=== PATIENT | male | born 1950 | race Caucasian/White ===

== ENCOUNTER 2017-03-27 16:07 | Inpatient (IN) | payer OTHER ==
[2017-03-27 16:42] LABS: BASOPHILS # (AUTO) 0.1 X10^3/uL (0.0-0.1); BASOPHILS % (AUTO) 0.9 % (0.2-1.0); EOSINOPHILS # (AUTO) 0.3 x10^3/uL (0.0-0.2); HEMATOCRIT 35.3 % (42.0-54.0); HEMOGLOBIN 11.7 g/dL (13.5-18.0); LYMPHOCYTES # (AUTO) 3.5 X10^3/uL (1.3-2.9); LYMPHOCYTES % (AUTO) 24.1 % (21.0-51.0); MEAN CORPUSCULAR HEMOGLOBIN 28.2 pg (27.0-34.0); MEAN CORPUSCULAR HGB CONC 33.2 g/dL (33.0-35.0); MEAN CORPUSCULAR VOLUME 85.1 fL (80.0-100.0); MEAN PLATELET VOLUME 9.5 fL (7.4-11.0); MONOCYTES # (AUTO) 1.3 x10^3/uL (0.3-0.8); MONOCYTES % (AUTO) 8.7 % (0.0-13.0); NEUTROPHILS # (AUTO) 9.3 x10^3/uL (2.2-4.8); NEUTROPHILS % (AUTO) 64.3 % (42.0-75.0); PLATELET COUNT 334 X10^3/uL (150.0-450.0); RED BLOOD COUNT 4.15 X10^6/uL (4.7-6.0); RED CELL DISTRIBUTION WIDTH 17.9 % (11.6-16.5); WHITE BLOOD COUNT 14.4 X10^3/uL (3.6-10.0)
[2017-03-27 17:00] LABS: ALANINE AMINOTRANSFERASE 25 Units/L (12-78); ALBUMIN 3.3 g/dL (3.4-5.0); ALKALINE PHOSPHATASE 86 Units/L (46-116); ASPARTATE AMINO TRANSFERASE 64 Units/L (15-37); BLOOD UREA NITROGEN 34 mg/dL (7-18); CALCIUM 9.6 mg/dL (8.5-10.1); CHLORIDE 101 mmol/L (98-107); CKMB % 1.6 % (<4); COR CA(FOR HYPOALB) 10.2 mg/dL (8.5-10.1); CREATINE KINASE 61 Units/L (39-308); CREATINE KINASE MB < 1.0 ng/mL (0-4.0); CREATININE 2.29 mg/dL (0.70-1.30); FREE T4 (FREE THYROXINE) 1.53 ng/dL (0.76-1.46); SODIUM 140 mmol/L (136-145); TOTAL PROTEIN 7.6 g/dL (6.4-8.2); TROPONIN I 0.03 ng/mL (0-1.5); TSH (3RD GENERATION) 1.424 uIU/mL (0.358-3.74); eGFR BLACK RACES 37 (>60); eGFR NON BLACK RACES 31 (>60)
[2017-03-27] MEDS: NS 1000 ML 1,000 ML IV SCH (17:15)
[2017-03-27] MEDS: ROCEPHIN VIAL 1 GM 1 GM in NS 50 ML IV + SPIKE MINIBAG* 50 ML IV SCH (17:48)
[2017-03-27 20:24] LABS: BILIRUBIN,URINE NEGATIVE (NEGATIVE); BLOOD/HEMOGLOBIN,URINE 5+ (NEGATIVE); GLUCOSE, URINE NEGATIVE (NEGATIVE); KETONES,URINE NEGATIVE (NEGATIVE); LEUKOCYTE ESTERASE ,URINE 2+ (NEGATIVE); NITRITES,URINE POSITIVE (NEGATIVE); PROTEIN,URINE 3+ (NEGATIVE); UROBILINOGEN,URINE NORMAL (NORMAL)
[2017-03-27 20:49] LABS: COLOR,URINE YELLOW (YELLOW)
[2017-03-27 20:50] LABS: APPEARANCE,URINE CLOUDY (CLEAR)
[2017-03-27 20:53] LABS: RBC,URINE 75 - 100 /HPF (NEGATIVE)
[2017-03-27 20:54] LABS: AMORPHOUS SEDIMENT,UR 3+ /HPF (NEGATIVE); BACTERIA,URINE 1+ /HPF (NEGATIVE); CALCIUM OXALATE CRYSTALS,UR FEW /HPF (NEGATIVE); HYALINE CASTS, URINE RARE /LPF (NEGATIVE); SQUAMOUS EPITHELIAL CELL,UR RARE /HPF (NEGATIVE)
[2017-03-27] MEDS ORDERED: ULTRAM PO PRN (21:55)
[2017-03-27] MEDS ORDERED: SOTALOL HCL PO SCH (22:00)
[2017-03-27] MEDS ORDERED: FLOMAX ONE (22:55)
[2017-03-27] MEDS: BETAPACE AF PO SCH (23:02)
[2017-03-27] MEDS: SINEMET (PLAIN) 25/100 MG PO SCH (23:03)
[2017-03-27] MEDS: FLOMAX PO SCH (23:05)
[2017-03-27 23:10] LABS: CKMB % 1.8 % (<4); CREATINE KINASE 57 Units/L (39-308); CREATINE KINASE MB < 1.0 ng/mL (0-4.0); TROPONIN I 0.02 ng/mL (0-1.5)
[2017-03-28 05:26] LABS: BASOPHILS # (AUTO) 0.1 X10^3/uL (0.0-0.1); BASOPHILS % (AUTO) 0.7 % (0.2-1.0); EOSINOPHILS # (AUTO) 0.2 x10^3/uL (0.0-0.2); EOSINOPHILS % (AUTO) 0.9 % (0.9-2.9); HEMATOCRIT 32.1 % (42.0-54.0); HEMOGLOBIN 10.5 g/dL (13.5-18.0); LYMPHOCYTES # (AUTO) 4.6 X10^3/uL (1.3-2.9); LYMPHOCYTES % (AUTO) 23.2 % (21.0-51.0); MEAN CORPUSCULAR HEMOGLOBIN 28.1 pg (27.0-34.0); MEAN CORPUSCULAR HGB CONC 32.6 g/dL (33.0-35.0); MEAN CORPUSCULAR VOLUME 86.2 fL (80.0-100.0); MEAN PLATELET VOLUME 9.9 fL (7.4-11.0); MONOCYTES # (AUTO) 1.9 x10^3/uL (0.3-0.8); MONOCYTES % (AUTO) 9.5 % (0.0-13.0); NEUTROPHILS # (AUTO) 13.1 x10^3/uL (2.2-4.8); NEUTROPHILS % (AUTO) 65.7 % (42.0-75.0); PLATELET COUNT 313 X10^3/uL (150.0-450.0); RED BLOOD COUNT 3.73 X10^6/uL (4.7-6.0); RED CELL DISTRIBUTION WIDTH 18.4 % (11.6-16.5); WHITE BLOOD COUNT 19.9 X10^3/uL (3.6-10.0)
[2017-03-28] MEDS: SINEMET (PLAIN) 25/100 MG PO SCH ×3 (05:34→21:03)
[2017-03-28] MEDS ORDERED: GLUCOPHAGE ONE (07:47)
[2017-03-28 07:54] LABS: CALCIUM 9.2 mg/dL (8.5-10.1); CARBON DIOXIDE 32.6 mmol/L (21-32); CREATININE 2.24 mg/dL (0.70-1.30)
[2017-03-28] MEDS: GLUCOPHAGE PO SCH (08:57)
[2017-03-28] MEDS: BETAPACE AF PO SCH ×2 (08:57→20:37)
[2017-03-28] MEDS: PROTONIX TAB 40 MG PO SCH (09:05)
[2017-03-28] MEDS: COREG TAB 12.5 MG PO SCH ×2 (09:06→20:36)
[2017-03-28] MEDS: LASIX PO SCH (09:06)
[2017-03-28] MEDS: ROCEPHIN VIAL 1 GM 1 GM in NS 50 ML IV + SPIKE MINIBAG* 50 ML IV SCH (09:06)
[2017-03-28] MEDS: XANAX PO SCH ×2 (09:06→20:37)
[2017-03-28] MEDS: ZYLOPRIM PO SCH (09:06)
[2017-03-28] MEDS: PLAVIX PO SCH (09:07)
[2017-03-28] MEDS: LANOXIN PO SCH (09:11)
[2017-03-28] MEDS: NS 1000 ML 1,000 ML IV SCH ×2 (09:13→20:40)
[2017-03-28 10:30] VITALS: BMI 25.2
[2017-03-28] MEDS ORDERED: HumuLIN R SUBCUT PRN (10:47)
[2017-03-28] MEDS ORDERED: MILK OF MAGNESIA PO PRN (12:52)
[2017-03-28 14:17] LABS: TROPONIN I 0.03 ng/mL (0-1.5)
[2017-03-28 15:24] LABS: TOTAL PROTEIN 6.9 g/dL (6.4-8.2)
[2017-03-28] MEDS ORDERED: COLACE CAP 100 MG PO PRN (19:38)
[2017-03-28] MEDS: FLOMAX PO SCH (20:35)
[2017-03-28] MEDS: TYLENOL #3 TAB (W/CODEINE) PO PRN (20:36)
[2017-03-28] MEDS: SNACK - Diabetic Appropriate PO SCH (20:39)
[2017-03-29 05:09] LABS: BASOPHILS # (AUTO) 0.1 X10^3/uL (0.0-0.1); BASOPHILS % (AUTO) 0.5 % (0.2-1.0); EOSINOPHILS # (AUTO) 0.4 x10^3/uL (0.0-0.2); EOSINOPHILS % (AUTO) 2.5 % (0.9-2.9); HEMATOCRIT 29.8 % (42.0-54.0); HEMOGLOBIN 9.7 g/dL (13.5-18.0); LYMPHOCYTES # (AUTO) 4.5 X10^3/uL (1.3-2.9); LYMPHOCYTES % (AUTO) 27.1 % (21.0-51.0); MEAN CORPUSCULAR HEMOGLOBIN 28.2 pg (27.0-34.0); MEAN CORPUSCULAR HGB CONC 32.4 g/dL (33.0-35.0); MEAN CORPUSCULAR VOLUME 86.9 fL (80.0-100.0); MEAN PLATELET VOLUME 10.2 fL (7.4-11.0); MONOCYTES # (AUTO) 1.6 x10^3/uL (0.3-0.8); MONOCYTES % (AUTO) 9.7 % (0.0-13.0); NEUTROPHILS % (AUTO) 60.2 % (42.0-75.0); PLATELET COUNT 267 X10^3/uL (150.0-450.0); RED BLOOD COUNT 3.43 X10^6/uL (4.7-6.0); RED CELL DISTRIBUTION WIDTH 18.2 % (11.6-16.5); WHITE BLOOD COUNT 16.7 X10^3/uL (3.6-10.0)
[2017-03-29 05:26] LABS: ALANINE AMINOTRANSFERASE 33 Units/L (12-78); ALBUMIN 2.6 g/dL (3.4-5.0); ALKALINE PHOSPHATASE 83 Units/L (46-116); ASPARTATE AMINO TRANSFERASE 56 Units/L (15-37); BLOOD UREA NITROGEN 26 mg/dL (7-18); CALCIUM 8.7 mg/dL (8.5-10.1); CARBON DIOXIDE 32.2 mmol/L (21-32); CHLORIDE 107 mmol/L (98-107); COR CA(FOR HYPOALB) 9.8 mg/dL (8.5-10.1); CREATININE 2.04 mg/dL (0.70-1.30); SODIUM 145 mmol/L (136-145); TOTAL PROTEIN 6.3 g/dL (6.4-8.2); eGFR BLACK RACES 42 (>60); eGFR NON BLACK RACES 35 (>60)
[2017-03-29] MEDS: NS 1000 ML 1,000 ML IV SCH (05:30)
[2017-03-29] MEDS: SINEMET (PLAIN) 25/100 MG PO SCH ×3 (05:30→21:39)
[2017-03-29] MEDS ORDERED: GLUCOPHAGE ONE (08:28)
[2017-03-29] MEDS: COREG TAB 12.5 MG PO SCH ×2 (08:41→21:38)
[2017-03-29] MEDS: BETAPACE AF PO SCH ×2 (08:41→21:41)
[2017-03-29] MEDS: GLUCOPHAGE PO SCH (08:41)
[2017-03-29] MEDS: ZYLOPRIM PO SCH (08:41)
[2017-03-29] MEDS: PROTONIX TAB 40 MG PO SCH (08:41)
[2017-03-29] MEDS: XANAX PO SCH ×2 (08:41→21:39)
[2017-03-29] MEDS: LANOXIN PO SCH (08:43)
[2017-03-29] MEDS: LASIX PO SCH (08:43)
[2017-03-29] MEDS: PLAVIX PO SCH (08:45)
[2017-03-29] MEDS: ROCEPHIN VIAL 1 GM 1 GM in NS 50 ML IV + SPIKE MINIBAG* 50 ML IV SCH (08:46)
--- NOTE | 2017-03-29 14:30 | PCM.PROG ---
Progress Note - Progress Note for Day of Date: 03/29/17 - Subjective Subjective: patient is a 66-year-old white male who was admitted from [facility] on 03/27/2017 with altered mental status and hematuria. Patient was noted to have a UTI on admission. Patient is currently receiving IV hydration. Patient's renal function slightly improved. Patient noted to be hypokelemic, limiting this morning potassium 3.1. - Past Medical Family Social History Past Med/Fam/Surg Hx: No changes since H&P Allergies: Allergies fentanyl Allergy (Unknown, Verified 03/27/17 17:06) - Review of Systems ROS: No change since H&P - Vital Signs and I&O's Vital Signs: Temperature 97.9 F Pulse Rate [Bilateral] 82 Pulse Rate 60 Respiratory Rate 18 Blood Pressure [Right Arm] 116/62 O2 Sat by Pulse Oximetry 92 Intake and Output: Intake & Output 03/27/17 03/28/17 03/29/17 03/30/17 11:59 11:59 11:59 11:59 Intake Total 1750 2120 Output Total 620 320 Balance 1130 1800 - Physical Exam Oriented: Normal Eyes: Normal Ear: Normal Nose: Normal Throat: Normal Respiratory: Diminished Cardiovascular: Irregular (regularly irregular) Tenderness: Normal Skin: Decreased Turgur Musculoskeletal: Back:Thoracic, Back:Lumbar, Motor Deficit Speech Pattern: Clear, Appropriate - Laboratory and Diagnostics Result Diagrams: 03/29/17 03:55 03/29/17 03:55 Labs: 03/27/17 22:35 Blood Blood Culture - Preliminary 03/27/17 22:10 Blood Blood Culture - Preliminary 03/27/17 19:34 Urine,Clean Catch Urine Culture - Final Laboratory WBC 16.7 X10^3/uL (3.6-10.0) H 03/29/17 03:55 RBC 3.43 X10^6/uL (4.7-6.0) L 03/29/17 03:55 Hgb 9.7 g/dL (13.5-18.0) L 03/29/17 03:55 Hct 29.8 % (42.0-54.0) L 03/29/17 03:55 MCV 86.9 fL (80.0-100.0) 03/29/17 03:55 MCH 28.2 pg (27.0-34.0) 03/29/17 03:55 MCHC 32.4 g/dL (33.0-35.0) L 03/29/17 03:55 RDW 18.2 % (11.6-16.5) H 03/29/17 03:55 Plt Count 267 X10^3/uL (150.0-450.0) 03/29/17 03:55 MPV 10.2 fL (7.4-11.0) 03/29/17 03:55 Neut % 60.2 % (42.0-75.0) 03/29/17 03:55 Lymph % 27.1 % (21.0-51.0) 03/29/17 03:55 [place] % 9.7 % (0.0-13.0) 03/29/17 03:55 Eos % 2.5 % (0.9-2.9) 03/29/17 03:55 Baso % 0.5 % (0.2-1.0) 03/29/17 03:55 Neut # 10.0 x10^3/uL (2.2-4.8) H 03/29/17 03:55 Lymph # 4.5 X10^3/uL (1.3-2.9) H 03/29/17 03:55 [place] # 1.6 x10^3/uL (0.3-0.8) H 03/29/17 03:55 Eos # 0.4 x10^3/uL (0.0-0.2) H 03/29/17 03:55 Baso # 0.1 X10^3/uL (0.0-0.1) 03/29/17 03:55 Absolute Nucleated RBC 0.0 /100WBC 03/29/17 03:55 INR Target Range - 03/27/17 16:22 INR 1.06 (0.8-1.3) 03/27/17 16:22 Sodium 145 mmol/L (136-145) 03/29/17 03:55 Corrected Sodium TNP 03/29/17 03:55 Potassium 3.1 mmol/L (3.5-5.1) L 03/29/17 03:55 Chloride 107 mmol/L (98-107) 03/29/17 03:55 Carbon Dioxide 32.2 mmol/L (21-32) H 03/29/17 03:55 BUN 26 mg/dL (7-18) H 03/29/17 03:55 Creatinine 2.04 mg/dL (0.70-1.30) H 03/29/17 03:55 Est GFR (MDRD) Af Amer 42 (>60) L 03/29/17 03:55 Est GFR (MDRD) Non-Af 35 (>60) L 03/29/17 03:55 Glucose 106 mg/dL (65-99) H 03/29/17 03:55 POC Glucose (mg/dL) 72 mg/dL (65-99) 03/29/17 12:39 Calcium 8.7 mg/dL (8.5-10.1) 03/29/17 03:55 Corrected Calcium 9.8 mg/dL (8.5-10.1) 03/29/17 03:55 Total Bilirubin 0.20 mg/dL (0.2-1.0) 03/29/17 03:55 AST 56 Units/L (15-37) H 03/29/17 03:55 ALT 33 Units/L (12-78) 03/29/17 03:55 Alkaline Phosphatase 83 Units/L (46-116) 03/29/17 03:55 Creatine Kinase 53 Units/L (39-308) 03/28/17 04:10 CK-MB (CK-2) 0.0 ng/mL (0-4.0) 03/28/17 04:10 CK/CKMB % Calc 0.0 % (<4) 03/28/17 04:10 Troponin I 0.03 ng/mL (0-1.5) 03/28/17 04:10 Total Protein 6.3 g/dL (6.4-8.2) L 03/29/17 03:55 Albumin 2.6 g/dL (3.4-5.0) L 03/29/17 03:55 Globulin 3.7 g/dL (2.5-4.5) 03/29/17 03:55 Albumin/Globulin Ratio 0.7 Ratio (1.1-2.1) L 03/29/17 03:55 Free T4 1.53 ng/dL (0.76-1.46) H 03/27/17 16:22 TSH 3rd Generation 1.424 uIU/mL (0.358-3.74) 03/27/17 16:22 Specimen Type Clean catch urine 03/27/17 19:34 Urine Color Yellow (YELLOW) 03/27/17 19:34 Urine Appearance Cloudy (CLEAR) 03/27/17 19:34 Urine pH 8.0 (5.0 - 8.0) 03/27/17 19:34 Ur Specific Krebs 1.010 (1.000-1.030) 03/27/17 19:34 Urine Protein 3+ (NEGATIVE) 03/27/17 19:34 Urine Glucose (UA) Negative (NEGATIVE) 03/27/17 19:34 Urine Ketones Negative (NEGATIVE) 03/27/17 19:34 Urine Occult Blood 5+ (NEGATIVE) 03/27/17 19:34 Urine Nitrite Positive (NEGATIVE) 03/27/17 19:34 Urine Bilirubin Negative (NEGATIVE) 03/27/17 19:34 Urine Urobilinogen Normal (NORMAL) 03/27/17 19:34 Ur Leukocyte Esterase 2+ (NEGATIVE) 03/27/17 19:34 Urine RBC 75 - 100 /HPF (NEGATIVE) 03/27/17 19:34 Urine WBC Tntc /HPF (NEGATIVE) 03/27/17 19:34 Ur Squamous Epith Cells Rare /HPF (NEGATIVE) 03/27/17 19:34 Calcium Oxalate Crystal Few /HPF (NEGATIVE) 03/27/17 19:34 Amorphous Sediment 3+ /HPF (NEGATIVE) 03/27/17 19:34 Urine Bacteria 1+ /HPF (NEGATIVE) 03/27/17 19:34 Hyaline Casts Rare /LPF (NEGATIVE) 03/27/17 19:34 Ur Culture Indicated? Yes/culture set up 03/27/17 19:34 Digoxin 0.72 ng/mL (0.9-2) L 03/28/17 07:39 - Plan (1) UTI (urinary tract infection) Status: Acute Plan: continue gentle hydration, iv atbx. encourage po intake water. repeat am labs (2) Hypertension Status: Acute (3) Acute on chronic renal failure Status: Acute (4) Altered mental status Status: Acute
[2017-03-29] MEDS: MICRO K EXTEN CAP 10 MEQ PO SCH (15:56)
[2017-03-29] MEDS ORDERED: K-DUR TAB 20 MEQ PO SCH (18:00)
[2017-03-29 21:18] LABS: BILIRUBIN,URINE NEGATIVE (NEGATIVE); BLOOD/HEMOGLOBIN,URINE 1+ (NEGATIVE); GLUCOSE, URINE NEGATIVE (NEGATIVE); KETONES,URINE NEGATIVE (NEGATIVE); LEUKOCYTE ESTERASE ,URINE NEGATIVE (NEGATIVE); NITRITES,URINE NEGATIVE (NEGATIVE); PROTEIN,URINE 2+ (NEGATIVE); UROBILINOGEN,URINE NORMAL (NORMAL)
[2017-03-29 21:23] LABS: APPEARANCE,URINE CLEAR (CLEAR); BACTERIA,URINE TRACE /HPF (NEGATIVE); COLOR,URINE YELLOW (YELLOW); RBC,URINE 0-3 /HPF (NEGATIVE); SQUAMOUS EPITHELIAL CELL,UR RARE /HPF (NEGATIVE)
[2017-03-29] MEDS: FLOMAX PO SCH (21:39)
[2017-03-30] MEDS: SNACK - Diabetic Appropriate PO SCH ×2 (00:15→21:48)
[2017-03-30 05:11] LABS: BASOPHILS # (AUTO) 0.1 X10^3/uL (0.0-0.1); BASOPHILS % (AUTO) 0.5 % (0.2-1.0); EOSINOPHILS # (AUTO) 0.7 x10^3/uL (0.0-0.2); EOSINOPHILS % (AUTO) 5.3 % (0.9-2.9); HEMATOCRIT 29.5 % (42.0-54.0); HEMOGLOBIN 9.8 g/dL (13.5-18.0); LYMPHOCYTES # (AUTO) 4.2 X10^3/uL (1.3-2.9); MEAN CORPUSCULAR HEMOGLOBIN 28.7 pg (27.0-34.0); MEAN CORPUSCULAR HGB CONC 33.3 g/dL (33.0-35.0); MEAN CORPUSCULAR VOLUME 86.1 fL (80.0-100.0); MEAN PLATELET VOLUME 10.3 fL (7.4-11.0); MONOCYTES # (AUTO) 1.2 x10^3/uL (0.3-0.8); MONOCYTES % (AUTO) 9.8 % (0.0-13.0); NEUTROPHILS # (AUTO) 6.5 x10^3/uL (2.2-4.8); NEUTROPHILS % (AUTO) 51.4 % (42.0-75.0); PLATELET COUNT 283 X10^3/uL (150.0-450.0); RED BLOOD COUNT 3.43 X10^6/uL (4.7-6.0); RED CELL DISTRIBUTION WIDTH 18.1 % (11.6-16.5); WHITE BLOOD COUNT 12.7 X10^3/uL (3.6-10.0)
[2017-03-30 05:15] LABS: ALANINE AMINOTRANSFERASE 24 Units/L (12-78); ALBUMIN 2.5 g/dL (3.4-5.0); ALKALINE PHOSPHATASE 89 Units/L (46-116); ASPARTATE AMINO TRANSFERASE 65 Units/L (15-37); BLOOD UREA NITROGEN 23 mg/dL (7-18); CALCIUM 8.7 mg/dL (8.5-10.1); CARBON DIOXIDE 32.2 mmol/L (21-32); CHLORIDE 106 mmol/L (98-107); COR CA(FOR HYPOALB) 9.9 mg/dL (8.5-10.1); CREATININE 1.79 mg/dL (0.70-1.30); SODIUM 145 mmol/L (136-145); TOTAL PROTEIN 6.4 g/dL (6.4-8.2); eGFR BLACK RACES 49 (>60); eGFR NON BLACK RACES 41 (>60)
[2017-03-30] MEDS ORDERED: POTASSIUM CHLORIDE LIQ 20 MEQ UDC PO PRN (05:21)
[2017-03-30] MEDS ORDERED: K-LYTE EFFERVESCENT PO PRN (05:21)
[2017-03-30] MEDS ORDERED: K-RIDER 10 MEQ/NS 100 ML 10 MEQ/100 ML BAG IV PRN (05:21)
[2017-03-30] MEDS: K-DUR TAB 20 MEQ PO PRN (05:50)
[2017-03-30] MEDS: SINEMET (PLAIN) 25/100 MG PO SCH ×3 (05:52→21:38)
[2017-03-30] MEDS: NS 1000 ML 1,000 ML IV SCH (05:59)
[2017-03-30] MEDS: BETAPACE AF PO SCH ×2 (10:12→21:38)
[2017-03-30] MEDS: LANOXIN PO SCH (10:12)
[2017-03-30] MEDS: MICRO K EXTEN CAP 10 MEQ PO SCH (10:13)
[2017-03-30] MEDS: COREG TAB 12.5 MG PO SCH ×2 (10:14→21:38)
[2017-03-30] MEDS: XANAX PO SCH ×2 (10:14→21:38)
[2017-03-30] MEDS: PLAVIX PO SCH (10:15)
[2017-03-30] MEDS: PROTONIX TAB 40 MG PO SCH (10:15)
[2017-03-30] MEDS: ROCEPHIN VIAL 1 GM 1 GM in NS 50 ML IV + SPIKE MINIBAG* 50 ML IV SCH (10:16)
[2017-03-30] MEDS: ZYLOPRIM PO SCH (10:16)
--- NOTE | 2017-03-30 19:09 | PCM.PROG ---
Progress Note - Progress Note for Day of Date: 03/30/17 - Subjective Subjective: patient is a 66-year-old white male who was admitted from [facility] on 03/27/2017 with altered mental status and hematuria. Patient was noted to have a UTI on admission. Patient is currently receiving IV hydration. Patient's renal function IMPROVING WITH GENTLE HYDRATION. pATIENT IS MORE AWAKE AND ALERT, COMPLAINING OF LEFT SHOULDER PAIN TODAY. pLAN TO OBTAIN AN X-RAY OF LEFT SHOULDER CONTINUE CEREBROVASCULAR DISEASE MANAGEMENT WITH pLAVIX, ASPIRIN, LIPID CONTROL AND BLOOD PRESSURE CONTROL. - Past Medical Family Social History Past Med/Fam/Surg Hx: No changes since H&P Allergies: Allergies fentanyl Allergy (Unknown, Verified 03/27/17 17:06) - Review of Systems ROS: No change since H&P - Vital Signs and I&O's Vital Signs: Temperature 98.3 F Pulse Rate [Bilateral] 63 Pulse Rate 62 Respiratory Rate 20 Blood Pressure [Right Arm] 122/57 O2 Sat by Pulse Oximetry 99 Intake and Output: Intake & Output 03/28/17 03/29/17 03/30/17 03/31/17 11:59 11:59 11:59 11:59 Intake Total 1750 2120 1860 900 Output Total 324 846 3303 650 Balance 1130 1800 -130 250 - Physical Exam Oriented: Normal Eyes: Normal Ear: Normal Nose: Normal Throat: Normal Respiratory: Diminished Cardiovascular: Irregular (regularly irregular), [place] Tenderness: Normal Skin: Decreased Turgur Musculoskeletal: Left, Shoulder, Back:Thoracic, Back:Lumbar, Motor Deficit Speech Pattern: Clear, Appropriate - Laboratory and Diagnostics Result Diagrams: 03/30/17 03:50 03/30/17 07:50 Labs: 03/29/17 21:03 Urine,Clean Catch Urine Culture - Preliminary 03/27/17 22:35 Blood Blood Culture - Preliminary 03/27/17 22:10 Blood Blood Culture - Preliminary 03/27/17 19:34 Urine,Clean Catch Urine Culture - Final Laboratory WBC 12.7 X10^3/uL (3.6-10.0) H 03/30/17 03:50 RBC 3.43 X10^6/uL (4.7-6.0) L 03/30/17 03:50 Hgb 9.8 g/dL (13.5-18.0) L 03/30/17 03:50 Hct 29.5 % (42.0-54.0) L 03/30/17 03:50 MCV 86.1 fL (80.0-100.0) 03/30/17 03:50 MCH 28.7 pg (27.0-34.0) 03/30/17 03:50 MCHC 33.3 g/dL (33.0-35.0) 03/30/17 03:50 RDW 18.1 % (11.6-16.5) H 03/30/17 03:50 Plt Count 283 X10^3/uL (150.0-450.0) 03/30/17 03:50 MPV 10.3 fL (7.4-11.0) 03/30/17 03:50 Neut % 51.4 % (42.0-75.0) 03/30/17 03:50 Lymph % 33.0 % (21.0-51.0) 03/30/17 03:50 [place] % 9.8 % (0.0-13.0) 03/30/17 03:50 Eos % 5.3 % (0.9-2.9) H 03/30/17 03:50 Baso % 0.5 % (0.2-1.0) 03/30/17 03:50 Neut # 6.5 x10^3/uL (2.2-4.8) H 03/30/17 03:50 Lymph # 4.2 X10^3/uL (1.3-2.9) H 03/30/17 03:50 [place] # 1.2 x10^3/uL (0.3-0.8) H 03/30/17 03:50 Eos # 0.7 x10^3/uL (0.0-0.2) H 03/30/17 03:50 Baso # 0.1 X10^3/uL (0.0-0.1) 03/30/17 03:50 Absolute Nucleated RBC 0.0 /100WBC 03/30/17 03:50 INR Target Range - 03/27/17 16:22 INR 1.06 (0.8-1.3) 03/27/17 16:22 Sodium 145 mmol/L (136-145) 03/30/17 03:50 Corrected Sodium TNP 03/30/17 03:50 Potassium 3.5 mmol/L (3.5-5.1) 03/30/17 07:50 Chloride 106 mmol/L (98-107) 03/30/17 03:50 Carbon Dioxide 32.2 mmol/L (21-32) H 03/30/17 03:50 BUN 23 mg/dL (7-18) H 03/30/17 03:50 Creatinine 1.79 mg/dL (0.70-1.30) H 03/30/17 03:50 Est GFR (MDRD) Af Amer 49 (>60) L 03/30/17 03:50 Est GFR (MDRD) Non-Af 41 (>60) L 03/30/17 03:50 Glucose 79 mg/dL (65-99) 03/30/17 03:50 POC Glucose (mg/dL) 106 mg/dL (65-99) H 03/30/17 16:03 Calcium 8.7 mg/dL (8.5-10.1) 03/30/17 03:50 Corrected Calcium 9.9 mg/dL (8.5-10.1) 03/30/17 03:50 Magnesium 2.0 mg/dL (1.7-2.9) 03/29/17 03:55 Total Bilirubin 0.20 mg/dL (0.2-1.0) 03/30/17 03:50 AST 65 Units/L (15-37) H 03/30/17 03:50 ALT 24 Units/L (12-78) 03/30/17 03:50 Alkaline Phosphatase 89 Units/L (46-116) 03/30/17 03:50 Creatine Kinase 53 Units/L (39-308) 03/28/17 04:10 CK-MB (CK-2) 0.0 ng/mL (0-4.0) 03/28/17 04:10 CK/CKMB % Calc 0.0 % (<4) 03/28/17 04:10 Troponin I 0.03 ng/mL (0-1.5) 03/28/17 04:10 Total Protein 6.4 g/dL (6.4-8.2) 03/30/17 03:50 Albumin 2.5 g/dL (3.4-5.0) L 03/30/17 03:50 Globulin 3.9 g/dL (2.5-4.5) 03/30/17 03:50 Albumin/Globulin Ratio 0.6 Ratio (1.1-2.1) L 03/30/17 03:50 Free T4 1.53 ng/dL (0.76-1.46) H 03/27/17 16:22 TSH 3rd Generation 1.424 uIU/mL (0.358-3.74) 03/27/17 16:22 Specimen Type Clean catch urine 03/29/17 21:03 Urine Color Yellow (YELLOW) 03/29/17 21:03 Urine Appearance Clear (CLEAR) 03/29/17 21:03 Urine pH 7.0 (5.0 - 8.0) 03/29/17 21:03 Ur Specific [place] 1.010 (1.000-1.030) 03/29/17 21:03 Urine Protein 2+ (NEGATIVE) 03/29/17 21:03 Urine Glucose (UA) Negative (NEGATIVE) 03/29/17 21:03 Urine Ketones Negative (NEGATIVE) 03/29/17 21:03 Urine Occult Blood 1+ (NEGATIVE) 03/29/17 21:03 Urine Nitrite Negative (NEGATIVE) 03/29/17 21:03 Urine Bilirubin Negative (NEGATIVE) 03/29/17 21:03 Urine Urobilinogen Normal (NORMAL) 03/29/17 21:03 Ur Leukocyte Esterase Negative (NEGATIVE) 03/29/17 21:03 Urine RBC 0-3 /HPF (NEGATIVE) 03/29/17 21:03 Urine WBC 0-3 /HPF (NEGATIVE) 03/29/17 21:03 Ur Squamous Epith Cells Rare /HPF (NEGATIVE) 03/29/17 21:03 Calcium Oxalate Crystal Few /HPF (NEGATIVE) 03/27/17 19:34 Amorphous Sediment 3+ /HPF (NEGATIVE) 03/27/17 19:34 Urine Bacteria Trace /HPF (NEGATIVE) 03/29/17 21:03 Hyaline Casts Rare /LPF (NEGATIVE) 03/27/17 19:34 Ur Culture Indicated? Yes/culture set up 03/29/17 21:03 Digoxin 0.72 ng/mL (0.9-2) L 03/28/17 07:39 - Plan (1) UTI (urinary tract infection) Status: Acute Plan: continue gentle hydration, iv atbx. encourage po intake water. repeat am labs (2) Hypertension Status: Acute (3) Acute on chronic renal failure Status: Acute (4) Altered mental status Status: Acute Plan: UTI, subacute CVA. (5) CVD (cardiovascular disease) Status: Acute Plan: PLAVIX, BP AND LIPID CONTROL. PT
[2017-03-30] MEDS: FLOMAX PO SCH (21:37)
[2017-03-31] MEDS: TYLENOL #3 TAB (W/CODEINE) PO PRN (03:22)
[2017-03-31 05:24] LABS: ALANINE AMINOTRANSFERASE 15 Units/L (12-78); ALBUMIN 2.6 g/dL (3.4-5.0); ALKALINE PHOSPHATASE 81 Units/L (46-116); ASPARTATE AMINO TRANSFERASE 46 Units/L (15-37); BLOOD UREA NITROGEN 20 mg/dL (7-18); CALCIUM 8.9 mg/dL (8.5-10.1); CARBON DIOXIDE 29.4 mmol/L (21-32); CHLORIDE 106 mmol/L (98-107); CREATININE 1.59 mg/dL (0.70-1.30); SODIUM 141 mmol/L (136-145); TOTAL PROTEIN 6.4 g/dL (6.4-8.2); eGFR BLACK RACES 56 (>60); eGFR NON BLACK RACES 47 (>60)
[2017-03-31] MEDS: SINEMET (PLAIN) 25/100 MG PO SCH ×2 (05:34→13:38)
[2017-03-31] MEDS: NS 1000 ML 1,000 ML IV SCH (05:35)
[2017-03-31 06:09] LABS: BASOPHILS # (AUTO) 0.1 X10^3/uL (0.0-0.1); BASOPHILS % (AUTO) 0.5 % (0.2-1.0); EOSINOPHILS # (AUTO) 0.6 x10^3/uL (0.0-0.2); EOSINOPHILS % (AUTO) 5.3 % (0.9-2.9); HEMATOCRIT 28.9 % (42.0-54.0); HEMOGLOBIN 9.5 g/dL (13.5-18.0); LYMPHOCYTES # (AUTO) 4.6 X10^3/uL (1.3-2.9); LYMPHOCYTES % (AUTO) 39.1 % (21.0-51.0); MEAN CORPUSCULAR HEMOGLOBIN 28.5 pg (27.0-34.0); MEAN CORPUSCULAR VOLUME 86.4 fL (80.0-100.0); MEAN PLATELET VOLUME 10.5 fL (7.4-11.0); MONOCYTES # (AUTO) 1.2 x10^3/uL (0.3-0.8); MONOCYTES % (AUTO) 10.4 % (0.0-13.0); NEUTROPHILS # (AUTO) 5.3 x10^3/uL (2.2-4.8); NEUTROPHILS % (AUTO) 44.7 % (42.0-75.0); PLATELET COUNT 275 X10^3/uL (150.0-450.0); RED BLOOD COUNT 3.34 X10^6/uL (4.7-6.0); WHITE BLOOD COUNT 11.7 X10^3/uL (3.6-10.0)
[2017-03-31] MEDS: K-DUR TAB 20 MEQ PO PRN (06:12)
[2017-03-31] MEDS: PROTONIX TAB 40 MG PO SCH (09:05)
[2017-03-31] MEDS: PLAVIX PO SCH (09:05)
[2017-03-31] MEDS: LANOXIN PO SCH (09:05)
[2017-03-31] MEDS: BETAPACE AF PO SCH (09:06)
[2017-03-31] MEDS: XANAX PO SCH (09:06)
[2017-03-31] MEDS: ZYLOPRIM PO SCH (09:06)
[2017-03-31] MEDS: MICRO K EXTEN CAP 10 MEQ PO SCH (09:07)
[2017-03-31] MEDS: COREG TAB 12.5 MG PO SCH (09:07)
[2017-03-31] MEDS: ROCEPHIN VIAL 1 GM 1 GM in NS 50 ML IV + SPIKE MINIBAG* 50 ML IV SCH (09:07)
[2017-03-31 14:20] VITALS: BP 152/70
== END 2017-03-31 15:38 | DRG 690 ==
LOC: MED/SURG 16:07 → OBSVTOIN 03-29 08:30
PROVIDERS: ADMIT Internal Medicine; ATTEND Internal Medicine
DX: N39.0 Urinary tract infection, site not specified (principal); R31.9 Hematuria, unspecified; R41.82 Altered mental status, unspecified; I12.9 Hypertensive chronic kidney disease with stage 1 through stage 4 chronic kidney disease, or unspecified chronic kidney disease; E11.65 Type 2 diabetes mellitus with hyperglycemia; E78.2 Mixed hyperlipidemia; I48.91 Unspecified atrial fibrillation; R00.0 Tachycardia, unspecified; E87.6 Hypokalemia; N18.9 Chronic kidney disease, unspecified; N17.8 Other acute kidney failure; I25.10 Atherosclerotic heart disease of native coronary artery without angina pectoris; M19.90 Unspecified osteoarthritis, unspecified site; R26.89 Other abnormalities of gait and mobility; Z79.01 Long term (current) use of anticoagulants
CPT/HCPCS: 36415; 70450; 71010; 73030; 80053; 80162; 81001; 82550; 82553; 83735; 84132; 84439; 84443; 84484; 85025; 85610; 87040; 87086; 93005; 93010; 94760; 99221; 99231; A4222; G0378; J0696